=== PATIENT | male | born 1980 | race Caucasian/White ===

== ENCOUNTER → 2016-09-12 | Outpatient (CLI) | payer OTHER ==
[~2016-09-12] MED LIST: AZULFIDINE PO; CIPRO PO; CODEINE PO; FLAGYL PO; FLEXERIL PO; FLEXERIL10 MG PO; FOLIC ACID PO; LOMOTIL TABLET1 TAB PO; NO MEDICATIONS; PHENERGAN25 MG PO; PREDNISONE PO; TYLENOL #3 PO; TYLOX 5/500 CAP1 CAP PO; ULTRAM PO; VICODIN PO; VITAMIN D50000 UNIT PO; VOLTAREN75 MG PO; WELLBUTRIN XL150 M1 PO; ZOFRAN; ZOFRAN PO; [UNRECOGNIZED DRUG - REMARK]
[2016-09-12 09:07] LABS: HEMATOCRIT 48.4 % (38.0-50.0); HEMOGLOBIN 16.8 gm/dL (13.0-16.0); MEAN CELL VOLUME 92.7 FL (83-96); MEAN CORPUSCULAR HEMOGLOBIN 32.2 PG (28-34); MEAN CORPUSCULAR HGB CONC 34.8 g/dL (30-36); MEAN PLATELET VOLUME 9.1 FL (6.5-11.5); RED BLOOD COUNT 5.23 X10e (3.90-5.60); RED CELL DISTRIBUTION WIDTH 12.3 % (11.0-15.5); WHITE BLOOD COUNT 7.7 X10e3 (4.0-10.5)
== END | disposition home or self-care (01) ==
LOC: SLAB 08:55
PROVIDERS: Orthopaedic Surgery Sports Medicine
DX: Z01.812 Encounter for preprocedural laboratory examination (principal)
CPT/HCPCS: 36415; 85027